=== PATIENT | female | born 1970 | race Caucasian/White ===

== ENCOUNTER 2024-10-28 00:04 | Emergency (ER) | payer MEDICARE, SELFPAY ==
--- NOTE | 2024-10-28 | ECG_ITS ---
Test Reason : CP Blood Pressure : */* mmHG Vent. Rate : 83 BPM Atrial Rate : 83 BPM P-R Int : 168 ms QRS Dur : 82 ms QT Int : 376 ms P-R-T Axes : 62 42 68 degrees QTcB Int : 441 ms Normal sinus rhythm Normal ECG No previous ECGs available Referred By: Generic ED Physician Electronically Signed By: JAMES CHO
--- NOTE | ~2024-10-28 | XR_ITS ---
CLINICAL HISTORY: chest pain 2 view chest x-ray Comparison: None Findings: The lungs are clear. Normal size heart. No acute fracture. IMPRESSION: 1. No acute findings. This document has been electronically signed by: Oneil Ventura MD on 10/28/2024 01:24:42
[2024-10-28 00:58] VITALS: BP 123/70; BP 126/74; PULSE 107; PULSE 80; RESP 24; TEMP 36.6; O2SAT 99; BMI 25.9
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
--- OUTSIDE RECORDS SUMMARY | 2024-10-28 01:16 | XMS_ITS | Clinical Summary ---
Author Organization [facility] Address [address] [place] [address] Care Team Providers Care Design Draftsman Name Role Phone Unavailable Primary Care Provider Unavailabl e Social History Tobacco Use Types Packs/Day Years Used Date Smoking Tobacco: Never Assessed Comments Unknown Sex and Gender Information Value Date Recorded Sex Assigned at Not on file Legal Sex Female 2:30 AM EST Gender Identity Not on file Sexual Orientation Not on file Plan of Treatment Health Maintenance Due Date Last Done Comments Breast Cancer Screening 1968 DTaP,Tdap,and Td Vaccines (1 - Tdap) 1987 Hepatitis B Vaccines (1 of 3 - 19+ 3-dose series) 1987 Cervical Cancer Screening: P ap Smear 1989 Pneumococcal Vaccine: 50+ Ye ars (1 of 1 - PCV) 2018 Zoster Vaccines (1 of 2) 2018 COVID-19 Vaccine ( - 2023-2 5 season) 2024 Influenza Vaccine (Season Ended) 2025 HIB Vaccines Aged Out No longer eligi ble based on patient's age to complete this topic HPV Vaccines Aged Out No longer eligi ble based on patient's age to complete this topic Hepatitis A Vaccines Aged Out No long er eligible based on patient's age to complete this topic IPV Vaccines Aged Out No longer eligi ble based on patient's age to complete this topic MMR Vaccines Aged Out No longer eligi ble based on patient's age to complete this topic Meningococcal ACWY Vaccine Aged Out N o longer eligible based on patient's age to complete this topic Meningococcal B Vaccine Aged Out No l onger eligible based on patient's age to complete this topic Pneumococcal Vaccine: Pediat rics (0 to 5 Years) and At-Risk Patients (6 to 64 Years) Aged Out No longer eligible b ased on patient's age to complete this topic RSV Immunization Patients Un rachele 20 months Aged Out No longer eligible b ased on patient's age to complete this topic Varicella Vaccines Aged Out No longer eligible based on patient's age to complete this topic
--- OUTSIDE RECORDS SUMMARY | 2024-10-28 01:16 | XMS_ITS | Encounter Summary ---
Author Organization [employer] Address [address] [place] [address] [address] [place] [address] Care Team Providers Care Dehydrator Name Role Phone Meg Cross MD Primary Care Provider [phone] Encounter Details Date Type Department Care Team (Late st Contact Info) Description 11/28/2023 Orders Only [facility] [address] [place] [address] Meg Cross MD [address] [place] [address] Social History Tobacco Use Types Packs/Day Years [...] on file documented as of this encounter Plan of Treatment Upcoming Encounters Date Type Department Care Team (Late st Contact Info) Description 10/30/2024 11:00 AM EDT Office Visit [facility] [address] [place] [address] Meg Cross MD [address] [place] [address] 11/01/2024 10:30 AM EDT Office Visit [address] [address] Meg Cross MD [address] [place] [address] documented as of this encounter Procedures Procedure Name Priority Date/Time Associated Diagnosis Comments MRI EXT UPPER W/O CONTRAST RIGHT Routine 12/15/2023 7:18 PM EDT XR KNEE 1-2 VIEWS RIGHT Routine 12/08/2023 1:25 PM EDT XR SHOULDER 2+ VIEWS RIGHT Routine 11/27/2023 12:40 PM EDT XR HUMERUS RIGHT Routine 11/27/2023 12:3 9 PM EDT XR FOREARM 2 VIEWS RIGHT Routine 11/27/2023 12:38 PM EDT XR ELBOW 3 OR MORE VIEWS RIGHT Routine 11/27/2023 12:[address] ABDOMEN PELVIS W CONTRAST Routine 11/27/2023 12:[address] CHEST W CONTRAST Routine 11/27/2023 1 2:36 PM EDT XR CHEST PORTABLE Routine 11/27/2023 12: [address] CERVICAL SPINE WO CONTRAST Routine 11/27/2023 12:[address] HEAD WO CONTRAST Routine 11/27/2023 1 2:34 PM EDT documented in this encounter Results * MRI EXT UPPER W/O CONTRAST RIGHT (12/15/2023 7:18 PM EDT) Anatomical Region Laterality Modality Magnetic Resonan ce 12/15/2023 7:18 PM EDT Narrative 12/16/2023 11:25 AM EDT Clinical history: Right shoulder pain. Technique: MRI of the right shoulder was performed without intravenous contrast. Comparison: Radiographs 11/27/2023 Findings: Rotator cuff: Mild supraspinatus tendinopathy without tear. Infraspinatus and teres minor appear intact. Mild to moderate subscapularis tendinopathy. Edema noted in the rotator cuff interval. Glenoid labrum and biceps tendon: There is no displaced labral tear. The biceps tendon is in the groove. AC joint: The acromioclavicular joint is unremarkable. Articular cartilage: The articular cartilage is of normal thickness. No focal defects are seen. Bone: The bone and bone marrow are normal. Impression: 1. ??Features of adhesive capsulitis in the appropriate clinical setting. 2. ??Mild supraspinatus tendinopathy without tear. 3. ??Mild to moderate subscapularis tendinopathy without tear. WSN: [id number] Ordering Physician: Bonita Atkinson Dictated By: ?Connor Acevedo MD Dictated Date/Time: ?12/16/23 11:22 a Reviewed By: ?Connor Acevedo MD Signed By: ? Connor Acevedo MD Signed Date/Time: ? 12/16/23 11:22 am Transcribed By: ? SHANNON Transcribed Date/Time: ?12/16/23 11:12 am Procedure Note Sherrie, Image - 12/16/2023 Clinical history: Right shoulder pain. Technique: MRI of the right shoulder was performed without intravenouscontrast. Comparison: Radiographs 11/27/2023 Findings: Rotator cuff: Mild supraspinatus tendinopathy without tear. Infraspinatusand teres minor appear intact. Mild to moderate subscapularis tendinopathy.Edema noted in the rotator cuff interval. Glenoid labrum and biceps tendon: There is no displaced labral tear. Thebiceps tendon is in the groove. AC joint: The acromioclavicular joint is unremarkable. Articular cartilage: The articular cartilage is of normal thickness. Nofocal defects are seen. Bone: The bone and bone marrow are normal. Impression: 1. Features of adhesive capsulitis in the appropriate clinical setting. 2. Mild supraspinatus tendinopathy without tear. 3. Mild to moderate subscapularis tendinopathy without tear. WSN: [id number] Ordering Physician: Bonita Atkinson Dictated By: Connor Acevedo MD Dictated Date/Time: 12/16/23 11:22 a Reviewed By: Connor Acevedo MD Signed By: Connor Acevedo MD Signed Date/Time: 12/16/23 11:22 am Transcribed By: SHANNON Transcribed Date/Time: 12/16/23 11:12 am us Bonita Atkinson MD IMG MRI PROCEDURES Final Resul t * XR Knee 1-2 Views Right (12/08/2023 1:25 PM EDT) Anatomical Region Laterality Modality Lower Extremities, Knee Right Radiogra phic Imaging 12/08/2023 1:25 PM EDT Narrative 12/08/2023 1:42 PM EDT Knee 1 or 2 Views Right, 2 views Reason: acute pain of right knee; Special Instructions: see req please thank you COMPARISON: Multiple priors with the most recent dated 09/02/2023. FINDINGS: No bone lesions or fractures. No arthritic changes. No osteochondral defects or intra-articular loose bodies. No evidence of joint effusion. IMPRESSION: No definite acute osseous abnormality is seen involving the right knee. No interval change. However if the patient's right knee pain persists, consideration should be given to an MRI examination of the right knee. WSN: [id number] Ordering Physician: Meg Cross Dictated By: ?Domenico Palacio MD V Dictated Date/Time: ?12/08/23 1:39 pm Reviewed By: ?Domenico Palacio MD, V Signed By: ? Domenico Palacio MD V Signed Date/Time: ? 12/08/23 1:39 pm Transcribed By: ? CSB Transcribed Date/Time: ?12/08/23 1:38 pm Procedure Note Donotuseinterpreter, Image - 12/08/2023 Knee 1 or 2 Views Right, 2 views Reason: acute pain of right knee; Special Instructions: see req pleasethank you COMPARISON: Multiple priors with the most recent dated 09/02/2023. FINDINGS: No bone lesions or fractures. No arthritic changes. No osteochondral defects or intra-articular loosebodies. No evidence of joint effusion. IMPRESSION: No definite acute osseous abnormality is seen involving the right knee.No interval change. However if the patient's right knee pain persists, consideration should begiven to an MRI examination of the right knee. WSN: [id number] Ordering Physician: Meg Cross Dictated By: Fereshetian MD, Domenico V Dictated Date/Time: 12/08/23 1:39 pm Reviewed By: Domenico Palacio MD, V Signed By: Domenico Palacio MD, V Signed Date/Time: 12/08/23 1:39 pm Transcribed By: SHANNON Transcribed Date/Time: 12/08/23 1:38 pm Meg Cross MD IMG XR PROCEDURES Final Result * XR Shoulder 2+ Views Right (11/27/2023 12:40 PM EDT) Anatomical Region Laterality Modality Upper Extremities, Shoulder Right Radi ographic Imaging us Meg Cross MD IMG XR PROCEDURES Final Result * XR Humerus Right (11/27/2023 12:39 PM EDT) Anatomical Region Laterality Modality Upper Extremities, Humerus Right Radio graphic Imaging Meg Cross MD IMG XR PROCEDURES Final Result * XR Forearm 2 Views Right (11/27/2023 12:38 PM EDT) Anatomical Region Laterality Modality Upper Extremities, Forearm Right Radio graphic Imaging Result [facility] Meg Cross MD IMG XR PROCEDURES Final Result * XR ELBOW 3 OR MORE VIEWS RIGHT (11/27/2023 12:37 PM EDT) Anatomical Region Laterality Modality Radiographic Trina ging Result [facility] Meg Cross MD IMG XR PROCEDURES Final Result * CT Abdomen Pelvis w/ Contrast (11/27/2023 12:37 PM EDT) Anatomical Region Laterality Modality Body, Pelvis, Abdomen Computed T omography us Meg Cross MD G CT PROCEDURES Final Result * CT Chest w/ Contrast (11/27/2023 12:36 PM EDT) Anatomical Region Laterality Modality Body, Chest Computed Tomogra phy us Meg Cross MD IMG CT PROCEDURES Final Result * XR Chest Portable (11/27/2023 12:35 PM EDT) Anatomical Region Laterality Modality Radiographic Trina ging Meg Cross MD IMG XR PROCEDURES Final Result * CT Cervical Spine w/o Contrast (11/27/2023 12:35 PM EDT) Anatomical Region Laterality Modality Spine, C-spine Computed Tomogra phy Meg Cross MD IMG CT PROCEDURES Final Result * CT HEAD WO CONTRAST (11/27/2023 12:34 PM EDT) Anatomical Region Laterality Modality Computed Tomogra phy Meg Cross MD IMG CT PROCEDURES Final Result documented in this encounter Visit Diagnoses Not on filedocumented in this encounter Additional Health Concerns Assessment Noted Time PHQ-9 Depression Total Score: 4 08/26/19 24 10:35 AM EST documented as of this encounter Care Teams Dehydrator Relationship Specialty Start Date End Date Meg Cross MD [address] [place] [id number] PCP - General Internal Medicine 05/20/22 documented as of this encounter
--- OUTSIDE RECORDS SUMMARY | 2024-10-28 01:16 | XMS_ITS | Encounter Summary ---
Author Organization [employer] Address [address] [place] [address] 7 [place] [address] Care Team Providers Care Sock Lining Stitcher Name Role Phone Meg Cross MD Primary Care Provider [phone] Encounter Details Date Type Department Care Team (Late st Contact Info) Description 11/02/2023 Orders Only [facility] [address] [place] [address] Meg Cross MD [address] [place] [address] Social History Tobacco Use Types Packs/Day Years [...] Description 10/30/2024 11:00 AM EDT Office Visit [address] [address] Meg Cross MD [address] [place] [phone] 11/01/2024 10:30 AM EDT Office Visit [address] [address] Meg Cross MD [address] [place] [address] documented as of this encounter Procedures Procedure Name Priority Date/Time Associated Diagnosis Comments HM PAP/HPV Routine 10/15/2022 12:32 PM EDT HM PAP/HPV Routine 07/29/2021 12:31 PM EST documented in this encounter Results * HM PAP/HPV (10/15/2022 12:32 PM EDT) us Meg Cross MD HEALTH MAINTENANCE Final Result * HM PAP/HPV (07/29/2021 12:31 PM EST) us Meg Cross MD HEALTH MAINTENANCE Final Result documented in this encounter Visit Diagnoses Not on filedocumented in this encounter Additional Health Concerns Assessment Noted Time PHQ-9 Depression Total Score: 4 08/26/19 24 10:35 AM EST documented as of this encounter Care Teams Sock Lining Stitcher Relationship Specialty Start Date End Date Meg Cross MD [address] [place] [id number] PCP - General Internal Medicine 05/20/22 documented as of this encounter
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
--- OUTSIDE RECORDS SUMMARY | 2024-10-28 01:16 | XMS_ITS | Data Portability ---
Author Organization [place] - [facility], [facility] Address [address] [place] [address] Care Team Providers Care Clinical Cytogenetics Director Name Role Phone YANE MCLAUGHLIN Elderly Sitter [phone] Assessment Encounter Date Assessment Date Assessment LastModified by Organization Details LastModified Time 09/20/2023 09/20/2023 Chief Complaint: Right knee contusion injury, work-related injury HPI: The patient is a 53-year-old female who presents with a chief complaint of knee pain that began this month. The onset of pain is associated with a work injury at [employer], where she reports hitting her knee with a metal bar, leading to an impact injury. Following the incident, the patient experienced swelling and sharp pain, particularly when attempting to bend her knee. Initially, the pain radiated up her leg but has since become localized to the anterior knee area. She describes difficulty sleeping on her side due to discomfort caused when her knees touch. The patient has been unable to work for a month as a result of the injury and expresses a strong desire to recover and return to her job. I independently reviewed outside x-rays of the right knee including AP, lateral and merchant views. No acute fractures or dislocations. Normal medial, lateral patellofemoral joint space. Normal patellar height. She has no significant past medical history and takes no medications. She has an allergy to penicillin. She is . She denies tobacco use. No personal or family history blood clots. Past medical, surgical, family and social history; Medications, Allergies and 12-point review of systems have been reviewed, updated and charted. Physical Examination: Height and weight as listed in chart. Constitutional: Patient pleasant, well appearing and in NAD. Mental status: Patient is alert and oriented to person, place and time. No short-term memory deficits. Psychiatric: Mood and affect are appropriate. Head: Normocephalic and atraumatic. Exterior inspection of the ears and nose was unremarkable. Hearing grossly intact. Eyes: Sclera are not blue. air analysis engineering technician II-XII are grossly intact. Full extraocular motion. Neck: Supple with age-appropriate ROM. No tracheal deviation. No obvious JVD. Respiratory: Non-labored breathing. Symmetric excursion. No audible wheezing or crackles. Peripheral Vascular: No peripheral edema. Distal pulses intact. Neurological: Peripheral motor and sensory exam normal and equal bilaterally. Skin: No rashes, lesions, wounds to the lower extremities. Normal turgor and coloration. Musculoskeletal: On examination of the right knee, there is no effusion, erythema or ecchymosis. Overall range of motion from 0-110? ? ? limited by pain. She has discomfort with deep knee flexion. Generalized tenderness over the anterior knee including the quad tendon and patellar tendon. She also exhibits medial and lateral joint line tenderness and tenderness over the medial tibial plateau. Her knee is stable to varus and valgus stress as well as Bethanie and posterior drawer. No patellar instability or grind. Extensor mechanism intact. 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 Her history and examination are consistent with a right knee contusion injury. She does have generalized tenderness over her anterior medial knee and certainly medial meniscus tear is also on the differential diagnosis. She has difficulty ambulating today in the office. I discussed options with her and recommended getting an MRI of the right knee to evaluate for contusion related bony edema as well as possible medial meniscus tear and associated pathology. I referred her for a Genutrain knee sleeve to provide compressive support to her knee and assist with activities of daily living. I performed a cortisone injection for both diagnostic and therapeutic purposes to the right knee today that she tolerated very well. I recommended stationary biking and water aerobics as gentle low-impact activities to help with her symptoms and range of motion. I prescribed diclofenac 1% anti-inflammatory cream. Remaining details of our plan is also below. I will plan to see her back in 3 weeks for reevaluation. I will keep her out of work at this time it did provide a work note. All questions and concerns were addressed. Knee Contusion Management Plan: - Scheduling an MRI to assess for potential bony edema and medial meniscus injury. - Initiating a regimen of physical therapy. - Prescribing a knee sleeve to provide additional support. - Recommending the use of a cane to enhance stability. - Advising the patient to massage the front of the knee with lotion to desensitize nerve endings. - Prescribing a topical anti-inflammatory medication. - Continuing the current prescription of meloxicam. - Administering a cortisone injection to alleviate inflammation. - Encouraging the application of ice post-activity. - Suggesting engaging in water aerobics and stationary biking for exercise. - Scheduling a follow-up appointment in three weeks. Today's visit involved examining the patient, reviewing the history, reviewing the radiographic studies, counseling the patient regarding treatment options, and the administrative tasks including placing orders, preparing patient information and home handouts and preparing the visit note. This note was generated with [facility] speech recognition fitting room operator dictation software. Please excuse any errors that may have been overlooked during review of this note. Sometimes, these errors may affect the content or meaning of a given sentence. Please call for corrections. [email or web address] Not available 09/20/2023 17:01:01 10/13/2023 10/13/2023 Chief Complaint: Right knee contusion injury, work-related injury HPI: The patient is a 53-year-old female who presents with a chief complaint of knee pain that began this month. The onset of pain is associated with a work injury at [employer], where she reports hitting her knee with a metal bar, leading to an impact injury. Following the incident, the patient experienced swelling and sharp pain, particularly when attempting to bend her knee. Initially, the pain radiated up her leg but has since become localized to the anterior knee area. She describes difficulty sleeping on her side due to discomfort caused when her knees touch. The patient has been unable to work for a month as a result of the injury and expresses a strong desire to recover and return to her job. I independently reviewed outside x-rays of the right knee including AP, lateral and merchant views. No acute fractures or dislocations. Normal medial, lateral patellofemoral joint space. Normal patellar height. She has no significant past medical history and takes no medications. She has an allergy to penicillin. She is . She denies tobacco use. No personal or family history blood clots. Past medical, surgical, family and social history; Medications, Allergies and 12-point review of systems have been reviewed, updated and charted. Physical Examination: Height and weight as listed in chart. Constitutional: Patient pleasant, well appearing and in NAD. Mental status: Patient is alert and oriented to person, place and time. No short-term memory deficits. Psychiatric: Mood and affect are appropriate. Head: Normocephalic and atraumatic. Exterior inspection of the ears and nose was unremarkable. Hearing grossly intact. Eyes: Sclera are not blue. air analysis engineering technician II-XII are grossly intact. Full extraocular motion. Neck: Supple with age-appropriate ROM. No tracheal deviation. No obvious JVD. Respiratory: Non-labored breathing. Symmetric excursion. No audible wheezing or crackles. Skin: No rashes, lesions, wounds to the lower extremities. Normal turgor and coloration. Musculoskeletal: On examination of the right knee, there is no effusion, erythema or ecchymosis. Overall range of motion from 0-130? ? ? limited by pain. She has discomfort with deep knee flexion. Generalized tenderness over the anterior knee including the quad tendon and patellar tendon, however, improved from prior exam. She also exhibits medial and lateral joint line tenderness and tenderness over the medial tibial plateau. Her knee is stable to varus and valgus stress as well as Bethanie and posterior drawer. No patellar instability or grind. Extensor mechanism intact. 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 Her history and examination are consistent with a right knee contusion injury. She does have generalized tenderness over her anterior medial knee and certainly medial meniscus tear is also on the differential diagnosis. She has difficulty ambulating today in the office. I discussed options with her and recommended getting an MRI of the right knee to evaluate for contusion related bony edema as well as possible medial meniscus tear and associated pathology. I previously referred her for a Genutrain knee sleeve to provide compressive support to her knee and assist with activities of daily living. She did have symptomatic improvement with the cortisone injection and I recommend she continue to use anti-inflammatori es as needed. I recommended stationary biking and water aerobics as gentle low-impact activities to help with her symptoms and range of motion. I have also referred her to physical therapy to work on range of motion and quad activation. 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 A work note was provided. I will plan to see her back in 6-8 weeks for reevaluation. All questions and concerns were addressed. [email or web address] Not available 10/13/2023 12:39:18 11/24/2023 11/24/2023 Chief Complaint: Right knee contusion injury, work-related injury HPI: The patient is a 53-year-old female who presents with a chief complaint of knee pain that began this month. The onset of pain is associated with a work injury at [employer], where she reports hitting her knee with a metal bar, leading to an impact injury. Following the incident, the patient experienced swelling and sharp pain, particularly when attempting to bend her knee. Initially, the pain radiated up her leg but has since become localized to the anterior knee area. She describes difficulty sleeping on her side due to discomfort caused when her knees touch. The patient has been unable to work for a month as a result of the injury and expresses a strong desire to recover and return to her job. She has had significant improvement in overall symptoms over the last 6 weeks since I last saw her but continues to isolate pain to the area of her contusion injury. She has responded favorably to low-impact activity, anti-inflammatori es as needed as well as use of a knee sleeve. She comes back today for scheduled reevaluation after obtaining an MRI. I independently reviewed the MRI of the right knee dated 10/28/2023. There is increased signal along the anterior portion of the patellar tendon consistent with prepatellar bursitis and contusion injury. Moderate patellar chondromalacia with some full thickness chondral loss to the medial patellar facet and subchondral changes noted. ACL and PCL intact. Collateral ligaments intact. Medial and lateral menisci intact with some possible fraying along the mid body of the medial meniscus. Extensor mechanism intact. Medial and lateral retinaculum intact. I independently reviewed outside x-rays of the right knee including AP, lateral and merchant views. No acute fractures or dislocations. Normal medial, lateral patellofemoral joint space. Normal patellar height. She has no significant past medical history and takes no medications. She has an allergy to penicillin. She is . She denies tobacco use. No personal or family history blood clots. Past medical, surgical, family and social history; Medications, Allergies and 12-point review of systems have been reviewed, updated and charted. Physical Examination: Height and weight as listed in chart. Constitutional: Patient pleasant, well appearing and in NAD. Mental status: Patient is alert and oriented to person, place and time. No short-term memory deficits. Psychiatric: Mood and affect are appropriate. Head: Normocephalic and atraumatic. Exterior inspection of the ears and nose was unremarkable. Hearing grossly intact. Eyes: Sclera are not blue. air analysis engineering technician II-XII are grossly intact. Full extraocular motion. Neck: Supple with age-appropriate ROM. No tracheal deviation. No obvious JVD. Respiratory: Non-labored breathing. Symmetric excursion. No audible wheezing or crackles. Skin: No rashes, lesions, wounds to the lower extremities. Normal turgor and coloration. Musculoskeletal: On examination of the right knee, there is no effusion, erythema or ecchymosis. Overall range of motion from 0-135? ? ?. She exhibits tenderness over the proximal portion of her pes anserine bursa and anteromedial tibia. No significant joint line tenderness. Her knee is stable to varus and valgus stress as well as Bethanie and posterior drawer. No patellar instability or grind. No pain with patellofemoral loading. No significant tenderness along the quad tendon or patellar tendon. Extensor mechanism intact. Procedure: Injection of Steroid and Anesthetic, Pes Anserine Bursa All reasonable risks and benefits of injection were discussed. Risks include bleeding, infection, non-relief of symptoms, recurrence of symptoms, allergic reaction, scarring, fat atrophy, and hyperglycemia. After obtaining verbal consent, the right anteromedial knee/roe was prepped in sterile fashion using an alcohol swab. The skin was anesthetized with ethyl chloride spray, wiped again with alcohol, and an injection of 1cc of Kenalog 40 and 4cc? s of Lidocaine 1% was performed using a 22-gauge needle into the pes anserine bursa. The medication flowed freely, and the patient tolerated this procedure well. The patient was instructed to avoid strenuous activity following the injection for approximately 24 to 48 hours, and then a gradual return to normal activities is allowed. 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 Her history, MRI and examination are consistent with a right knee contusion injury. She does have generalized tenderness over her anterior medial knee at the location of the impact/contusion injury. Fortunately, her symptoms have significantly improved through conservative treatment including rest, activity modification, oral anti-inflammatori es, cortisone injection treatment and physical therapy. She is walking normally without an assistive device at this point. I did recommend attempting a pes anserine bursal injection today that she tolerated very well. I also want her to continue using a topical anti-inflammatory and her knee sleeve. I suggested stationary biking is an excellent low-impact activity. I do think that it will likely take a few months for the contusion symptoms to completely resolve. She does wish to return to work and I will allow her to do so at full duty status beginning 12/05/2023. A work note was provided. At this point, I can see her back as needed. All questions and concerns were addressed. [email or web address] Not available 11/24/2023 10:44:02 Plan of Treatment Reminders Order Date Submit Date Provider Last Modified By Organization Details Last Modified Time Details Appointments None recorded. Lab None recorded. Referral physical therapist referral - general strengtheni ng, ROM, quad strengtheni ng, modalities as tolerated 2023 024 [email or web address] Not available 13:15:05 Procedures None recorded. Surgeries None recorded. Imaging MRI, knee, w/o contrast - ? mmt/ pending w/c approval 2023 024 [email or web address] 4 [facility] [place], [address] [facility], [facility] [address], [place], [address], 4 15:36:46 Medication Orders diclofenac 1 % topical gel 2023 024 [email or web address] 4 [id number], [address] [place] [address], [place], [address], 15:36:46 Patient TargetsNo targets recorded. Patient Instructions Encounter Date Encounter Id Patient Instructions Last Modified By Organization Details Last Modified Time 09/20/2023 [id number] Dear Melissa Wiley, Thank you for visiting us today. Please find below the treatment plan and care instructions we discussed: - Physical Therapy: Begin sessions to support your recovery process. - Knee Support: Use an appropriate knee sleeve for added stability. - Mobility Aid: Consider using a cane to help with balance and stability. - MRI: Scheduled to evaluate potential underlying issues, such as bony edema or damage to the medial meniscus. - Knee Massage: Regularly massage the front of your knee with lotion to desensitize nerve endings. - Medication Continuation: Continue taking Meloxicam as previously prescribed. - Topical Anti-Inflammatory : I will prescribe this medication to assist with pain relief. - Cortisone Injection: We will administer this to alleviate inflammation and discomfort in your knee. - Ice Application: Apply ice post-activity to control swelling. - Gentle Exercises: Engage in low-impact activities like water aerobics and stationary biking. - Work Leave: You will be kept out of work for the next three weeks to focus on your recovery. - Follow-Up Appointment: We have scheduled your next visit for three weeks from now to monitor your progress and adjust the treatment plan as necessary. Our goal is to ensure you receive the highest quality of care and can return to your daily activities pain-free. Should you have any questions or need assistance before your follow-up, please reach out to our office. Best regards, Dr. Yrn Jacobsen MD Orthopedic Surgery [email or web address] Not available 09/20/2023 17:02:58 Reason for Referral Physical Therapist Referral for Contusion of right knee general strengthening, ROM, quad strengthening, modalities as tolerated Referring Physician: Yrn Jacobsen, Orthopedic Surgery, [id number] Encounter Date: 10/13/2023 Procedures Surgical History Date Name Laterality Status Provider Name and Address Organization Details Recorded Time 4 Small Joint Kenalog Injection, L/R completed Yrn Jacobsen MD [address] [facility] [address] [facility], [place], [address], [facility] 11/24/2023 10:44:47 4 Sports Knee 4&1 completed Yrn Jacobsen MD [address] [facility] [facility] [address], [place], [address], [facility] 09/20/2023 17:01:14 Imaging Results None recorded. Procedure Notes None recorded. Medical Equipment None Reported. Allergies Allergen ID Allergen Name Allergen Category Reaction Reaction Severity Criticality Documentation Date Start Date Code Code System Note Provider Name and Address Organization Details Recorded Time 241131 Product containin g penicilli n (product) medicatio n Not available Not available Not available 10/13/2023 47016 8001 SNOMED SANA AMBROSIO [facility] 12:06:33 Medications Name Sig Start Date Stop Date Status Note LastModified by Organization Details LastModified Time fluoxetine 40 mg capsule TAKE 1 CAPSULE BY MOUTH TWICE A DAY active Not Available Not Available No t Available buspirone 5 mg tablet PLEASE SEE ATTACHED FOR DETAILED DIRECTIONS active Not Available Not Available N ot Available bupropion HCl SR 150 mg tablet,12 hr sustained-re lease TAKE 1 TABLET BY MOUTH TWICE A DAY active Not Available Not Available No t Available tizanidine 4 mg tablet TAKE 1 TABLET BY MOUTH EVERY 8 HOURS NEEDED FOR MUSCLE SPASMS active Not Available Not Available No t Available meloxicam 15 mg tablet TAKE 1 TABLET BY MOUTH EVERY DAY IN THE MORNING active Not Available Not Available No t Available terbinafine HCl 250 mg tablet TAKE 1 TABLET (250 MG) BY MOUTH ONCE PER DAY. active Not Available Not Available No t Available baclofen 10 mg tablet TAKE 1 TABLET BY MOUTH TWICE A DAY active Not Available Not Available No t Available benzonatate 100 mg capsule TAKE 1 CAPSULE BY MOUTH IF NEEDED IN THE MORNING , AT NOON AND BEDTIME FOR COUGH DO NOT CRUSH/CHEW active Not Available Not Available N ot Available hydroxyzine HCl 25 mg tablet TAKE 1 TABLET BY MOUTH EVERY 8 HOURS NEEDED FOR ITCHING active Not Available Not Available No t Available diclofenac 1 % topical gel APPLY 2 GRAMS TO THE AFFECTED AREA(S) BY TOPICAL ROUTE 4 TIMES PER DAY active Not Available Not Available No t Available Vitals Date Recorded Body height Body mass index (BMI) Body weight Provider Name and Address Organization Details Last Updated DateTime 10/13/2023 152.4 cm 28.1 kg/m2 55556.3 g SANA AMBROSIO [facility] 10/13/2023 12:06:18 Date Recorded Body height Body mass index (BMI) Body weight Provider Name and Address Organization Details Last Updated DateTime 11/24/2023 152.4 cm 28.1 kg/m2 52688.3 g Chris Raza [place] - [facility] 11/24/2023 09:45:19 Social History None recorded. Functional Status None recorded. Mental Status None recorded. Family History Nothing Reported. Medical History No medical history recorded. Gynecological HistoryNo gynecological history recorded. Obstetrics History GPAL:G 0 P 0 0 0 0 Past Encounters Encounter ID Performer Location Encounter Start Date Encounter Closed Date Diagnosis/Indication Diagnosis SNOMED-CT Code Diagnosis ICD10 Code Diagnosis Note [id number] MD Katelin Newberry [address] [place] [address] 09/20/2023 13:58:04 10/13/2023 15:08:49 Pain of right knee joint 9223211419 98923 M25.561 Contusion of right knee 2239652394 0914004 S80.01XA [id number] MD Katelin Newberry [address]nd [facility] [address] [place] [address] 10/13/2023 11:00:27 11/03/2023 09:05:01 Contusion of right knee 8175913775 9801018 S80.01XA [id number] [facility] [address] [place] [address] 11/24/2023 09:35:51 12/16/2023 14:26:23 Contusion of right knee [id number] [id number] S80.01XD Health Concerns Section Related Observation LastModified by Organization Detai ls LastModified Time None Recorded Concern Status LastModified by Organization Details LastModified Time None Recorded Advance Directives Directive None Recorded Payers Encounter Date Sequence Insurance Name Policy Number Policy Carrasquillo Covered Member ID Carrasquillo Member ID Guarantor Name 09/20/2023 [employer] Melissa Inez 10/13/2023 [employer] Melissa Inez 11/24/2023 [employer] Melissa Inez OBGyn Episode No OBEpisode recorded.
--- OUTSIDE RECORDS SUMMARY | 2024-10-28 01:16 | XMS_ITS | Encounter Summary ---
Author Organization [employer] Address [address] [facility] 7t [place] [address] Care Team Providers Care Director Of Event Marketing Name Role Phone Meg Cross MD Primary Care Provider [phone] Encounter Details Date Type Department Care Team (Late st Contact Info) Description 10/31/2023 Orders Only [facility] MEDICAL [address] [place] [address] ProviderBharat MD Social History Tobacco Use Types Packs/Day Years [...] Description 10/30/2024 11:00 AM EDT Office Visit [address] [address] Meg Cross MD [address] [place] [address] 11/01/2024 10:30 AM EDT Office Visit [address] [address] Meg Cross MD [address] [place] [address] documented as of this encounter Procedures Procedure Name Priority Date/Time Associated Diagnosis Comments SURGICAL PATHOLOGY Routine 03/10/2023 6:53 PM EDT documented in this encounter Results * Surgical Pathology (03/10/2023 6:53 PM EDT) us Historical Provider LAB PATHOLOGY ORDERABLES Final Result documented in this encounter Visit Diagnoses Not on filedocumented in this encounter Additional Health Concerns Assessment Noted Time PHQ-9 Depression Total Score: 4 08/26/19 24 10:35 AM EST documented as of this encounter Care Teams Director Of Event Marketing Relationship Specialty Start Date End Date Meg Cross MD [address] [place] [address] PCP - General Internal Medicine 05/20/22 documented as of this encounter
--- OUTSIDE RECORDS SUMMARY | 2024-10-28 01:16 | XMS_ITS | Encounter Summary ---
Author Organization [employer] Address [address] [place] [address] 7 [place] [address] Care Team Providers Care Smoke Jumper Name Role Phone Meg Cross MD Primary Care Provider [phone] Reason for Visit * Reason Onset Date Comments fml paperwork 09/20/2024 Encounter Details Date Type Department Care Team (Late st Contact Info) Description 09/20/[address] [facility] MEDICAL [address] [place] [address] Meg Cross MD [address] [place] [address] fml paperwork Social History Tobacco Use Types Packs/Day Years [...] encounter Miscellaneous Notes * Telephone Encounter - SAHRA Miranda - 09/21/2024 4:53 PM EDT Paperwork in outgoing bin in Dr Anders office. * Telephone Encounter - Molly Puente - 09/20/2024 12:19 PM EDT Patient dropped off family medical leave paperwork at desk and asked that she be given a call when it is completed so that she can come pick it up. Paperwork placed in provider folder. documented in this encounter Plan of Treatment Upcoming Encounters Date Type Department Care Team (Late st Contact Info) Description 10/30/2024 11:00 AM EDT Office Visit [facility] MEDICAL [address] [place] [address] Meg Cross MD [address] [place] [address] 11/01/2024 10:30 AM EDT Office Visit [address] [address] Meg Cross MD [address] [place] [address] documented as of this encounter Visit Diagnoses Not on filedocumented in this encounter Additional Health Concerns Assessment Noted Time PHQ-9 Depression Total Score: 4 08/26/19 24 10:35 AM EST documented as of this encounter Care Teams Smoke Jumper Relationship Specialty Start Date End Date Meg Cross MD [address] [place] [address] PCP - General Internal Medicine 05/20/22 documented as of this encounter
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
[2024-10-28 03:13] VITALS: BP 101/59; PULSE 70; RESP 18; TEMP 36.6; O2SAT 97
[2024-10-28 03:18] LABS: MANUAL DIFF FLAG NO
[2024-10-28 03:20] LABS: Basophils Percent Auto 0.2 % (0-2); Eosinophils Percent Auto 0.1 % (0-4); Hematocrit 38.4 % (37.0-47.0); Imm Gran Abs Auto 0.03 X10*3/uL (0.00-0.03); Imm Gran Pct Auto 0.3 % (0.0-0.4); Lymphocytes Absolute Auto 1.1 X10*3/uL (1.2-4.9); Mean Corpuscular HGB Conc 33.9 g/dl (31.0-35.0); Mean Corpuscular Hemoglobin 27.4 pg (27.0-33.0); Mean Corpuscular Volume 80.8 fL (80.0-98.0); Monocytes Absolute Auto 0.6 X10*3/uL (0.1-1.2); Monocytes Percent Auto 5.9 % (2-11); Neutrophils Absolute Auto 9.1 x10*3/uL (2.0-8.3); Neutrophils Percent Auto 83.5 % (45-73); Platelet Count 230 X10*3/uL (160-400); Red Blood Count 4.75 X10*6/uL (4.20-5.50); Red Cell Distribution Width 13.1 % (11.0-16.0); White Blood Count 10.9 X10*3/uL (4.8-10.8)
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
[2024-10-28 03:38] LABS: Albumin Level 4.2 g/dL (3.5-5.0); Alkaline Phosphatase 89 U/L (39-117); Anion Gap 13 (12-20); Aspartate Amino Transferase 25 U/L (5-31); Bilirubin Total 0.5 mg/dL (0.0-1.0); Blood Urea Nitrogen 12 mg/dL (9-16); Calcium 9.3 mg/dL (8.4-10.2); Carbon Dioxide 25 mmol/L (22-29); Chloride 107 mmol/L (96-108); Creatinine Clr Calc Pharmacy 69.8; Estimated Glomerular Filt Rate > 60; Glucose Random 128 mg/dL (60-115); Potassium 3.3 mmol/L (3.3-5.1); Sodium 142 mmol/L (135-145); Total Protein 6.4 g/dL (6.5-8.0)
[2024-10-28 03:41] LABS: Troponin-I High Sensitivity 3.2 ng/L (<3.5-17.0)
[2024-10-28 03:50] LABS: Alanine Aminotransferase 22 U/L (0-31)
[2024-10-28 05:24] VITALS: BP 114/79; PULSE 75; RESP 16; TEMP 36.6; O2SAT 99
[2024-10-28 05:56] LABS: Troponin-I High Sensitivity 2.9 ng/L (<3.5-17.0)
[2024-10-28 07:07] VITALS: BP 125/77; PULSE 70; RESP 14; TEMP 36.8; O2SAT 96
--- NOTE | 2024-10-28 07:08 | PC.NURSE ---
Attempted to medicate patient before discharge, patient refused ativan. Patient stated I dont want to be groggy for oriental orthodox . Patient calm and cooperative
== END 2024-10-28 07:46 | disposition home or self-care (01) ==
PROVIDERS: Emergency Provider Internal Medicine; PCP Internal Medicine
DX: R07.89 Other chest pain (principal); F41.1 Generalized anxiety disorder; F43.0 Acute stress reaction; Z79.899 Other long term (current) drug therapy
CPT/HCPCS: 36415; 71046; 80053; 84484; 85025; 93005; 99283; 99285

== ENCOUNTER → 2024-10-28 00:13 | Outpatient (BNV) | payer MEDICARE, SELFPAY | PROVIDERS: Emergency Provider Internal Medicine; PCP Internal Medicine; Visit Provider Internal Medicine | DX: R07.9 Chest pain, unspecified (principal) | CPT/HCPCS: 93010 ==

== ENCOUNTER → 2024-10-28 01:10 | Outpatient (BNV) | payer MEDICARE, SELFPAY | PROVIDERS: Emergency Provider Internal Medicine; PCP Internal Medicine; Visit Provider Radiology Diagnostic Radiology | DX: R07.9 Chest pain, unspecified (principal) | CPT/HCPCS: 71046 ==

== ENCOUNTER 2024-10-31 19:31 | Emergency (ER) | payer BC, MEDICARE, SELFPAY ==
--- NOTE | ~2024-10-31 | XR_ITS ---
CLINICAL HISTORY: chest pain 2 view chest x-ray Comparison: CR - XR CHEST 2V - 10/28/24 01:16 EDT Findings: The lungs are clear. Normal size heart. No acute fracture. IMPRESSION: 1. No acute findings. This document has been electronically signed by: Sierra Childress MD on 10/31/2024 20:34:57
--- NOTE | 2024-10-31 19:32 | ECG_ITS ---
Test Reason : CHEST PAIN Blood Pressure : */* mmHG Vent. Rate : 65 BPM Atrial Rate : 65 BPM P-R Int : 174 ms QRS Dur : 74 ms QT Int : 402 ms P-R-T Axes : 65 41 46 degrees QTcB Int : 418 ms Normal sinus rhythm Normal ECG When compared with ECG of 28-Oct-2024 00:13, No significant change was found Referred By: Cathy Perez Electronically Signed By: PIPPA COLON MD
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
[2024-10-31 19:48] VITALS: BP 142/82; PULSE 69; RESP 20; TEMP 36.8; O2SAT 96; BMI 24.3
[2024-10-31 20:06] LABS: MANUAL DIFF FLAG NO
[2024-10-31 20:07] LABS: Basophils Percent Auto 0.3 % (0-2); Eosinophils Percent Auto 0.5 % (0-4); Hemoglobin 13.5 g/dl (12.0-16.0); Imm Gran Abs Auto 0.01 X10*3/uL (0.00-0.03); Imm Gran Pct Auto 0.2 % (0.0-0.4); Lymphocytes Absolute Auto 1.8 X10*3/uL (1.2-4.9); Lymphocytes Percent Auto 28.5 % (20-40); Mean Corpuscular HGB Conc 33.8 g/dl (31.0-35.0); Mean Corpuscular Hemoglobin 27.7 pg (27.0-33.0); Mean Corpuscular Volume 82.1 fL (80.0-98.0); Mean Platelet Volume 10.1 fL (9.4-12.3); Monocytes Absolute Auto 0.5 X10*3/uL (0.1-1.2); Monocytes Percent Auto 7.4 % (2-11); Neutrophils Percent Auto 63.1 % (45-73); Platelet Count 246 X10*3/uL (160-400); Red Blood Count 4.87 X10*6/uL (4.20-5.50); Red Cell Distribution Width 13.2 % (11.0-16.0); White Blood Count 6.3 X10*3/uL (4.8-10.8)
[2024-10-31 20:08] VITALS: BP 113/68; PULSE 63; RESP 17; TEMP 36.8; O2SAT 97
--- OUTSIDE RECORDS SUMMARY | 2024-10-31 20:19 | XMS_ITS | Encounter Summary ---
Author Organization [employer] Address [address] [place] [address] 7t [place] [address] Care Team Providers Care Business Services Tech Name Role Phone Meg Cross MD Primary Care Provider [phone] Encounter Details Date Type Department Care Team (Late st Contact Info) Description 10/31/[address] [facility] MEDICAL [address] [place] [address] ProviderBharat MD Social History Tobacco Use Types [...] Care Team (Late st Contact Info) Description 11/01/2024 10:30 AM EDT Office Visit [facility] MEDICAL [address] [place] [address] Meg Cross MD [address] [place] [address] documented as of this encounter Procedures Procedure [...] documented as of this encounter Care Teams Business Services Tech Relationship Specialty Start Date End Date Meg Cross MD [address] [place] [address] PCP - General Internal Medicine 05/20/22 documented as of this encounter
--- OUTSIDE RECORDS SUMMARY | 2024-10-31 20:19 | XMS_ITS | Encounter Summary ---
Author Organization [employer] Address [address] [place] [address] 7 [place] [address] Care Team Providers Care Yarn Carrier Name Role Phone Meg Cross MD Primary Care Provider Encounter Details Date Type Department Care Team (Late st Contact Info) Description 11/02/2023 Orders Only [facility] [address] [place] [address] Meg Cross MD [address] [place] [address] Social History Tobacco Use Types Packs/Day Years [...] Description 11/01/2024 10:30 AM EDT Office Visit [facility] MEDICAL [address] [place] [address] Meg Cross MD [address] [place] [address] documented as of this encounter Procedures Procedure [...] documented as of this encounter Care Teams Yarn Carrier Relationship Specialty Start Date End Date Meg Cross MD [address] [place] [address] PCP - General Internal Medicine 05/20/22 documented as of this encounter
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
--- OUTSIDE RECORDS SUMMARY | 2024-10-31 20:19 | XMS_ITS | Encounter Summary ---
Author Organization [employer] Address [address] [place] [address] 7 [place] [address] Care Team Providers Care Digital Tech Name Role Phone Meg Cross MD Primary Care Provider [phone] Encounter Details Date Type Department Care Team (Late st Contact Info) Description 10/29/2024 Orders Only [facility] [address] [place] [address] Meg Cross MD [address] [place] [address] Social History Tobacco Use Types Packs/Day Years [...] Description 11/01/2024 10:30 AM EDT Office Visit [facility] MEDICAL [address] [place] [address] Meg Cross MD [address] [place] [address] documented as of this encounter Procedures Procedure Name Priority Date/Time Associated Diagnosis Comments XR CHEST 2 VIEWS Routine 10/28/2024 10:51 AM EDT documented in this encounter Results * XR Chest 2 Views (10/28/2024 10:51 AM EDT) Anatomical Region Laterality Modality Chest Radiographic Trina ging Meg Cross MD IMG XR PROCEDURES Final Result documented in this encounter Visit Diagnoses Not on filedocumented in this encounter Additional Health Concerns Assessment Noted Time PHQ-9 Depression Total Score: 4 08/26/19 24 10:35 AM EST documented as of this encounter Care Teams Digital Tech Relationship Specialty Start Date End Date Meg Cross MD [address] [place] [address] PCP - General Internal Medicine 05/20/22 documented as of this encounter
--- OUTSIDE RECORDS SUMMARY | 2024-10-31 20:19 | XMS_ITS | Encounter Summary ---
Author Organization [employer] Address [address] [place] [address] 7 [place] [address] Care Team Providers Care Waiter/Waitress Take Out Name Role Phone Meg Cross MD Primary Care Provider [phone] Reason for Visit * Reason Onset Date Comments fml paperwork 09/20/2024 Encounter Details Date Type Department Care Team (Late st Contact Info) Description 09/20/[address] [facility] MEDICAL [address] [place] [address] Meg Cross MD [address] [place] [address] fml paperwork Social History Tobacco Use Types [...] Description 11/01/2024 10:30 AM EDT Office Visit [facility] MEDICAL [address] [place] [address] Meg Cross MD [address] [place] [address] documented as of this encounter Visit Diagnoses Not on filedocumented in this encounter Additional Health Concerns Assessment Noted Time PHQ-9 Depression Total Score: 4 08/26/19 24 10:35 AM EST documented as of this encounter Care Teams Waiter/Waitress Take Out Relationship Specialty Start Date End Date Meg Cross MD [address] [place] [address] PCP - General Internal Medicine 05/20/22 documented as of this encounter
--- OUTSIDE RECORDS SUMMARY | 2024-10-31 20:19 | XMS_ITS | Encounter Summary ---
Author Organization [employer] Address [address] [place] [address] 7 [place] [address] Care Team Providers Care Project Crew Worker Name Role Phone Meg Cross MD Primary Care Provider Reason for Visit * Reason Onset Date Comments Chest Pain 10/31/2024 Encounter Details Date Type Department Care Team (Late st Contact Info) Description 10/31/2024 Telephone [facility] MEDICAL [address] [place] [address] Meg Cross MD [address] [place] [address] Chest Pain Social History Tobacco Use Types Packs/Day Years [...] encounter Miscellaneous Notes * Telephone Encounter - Che Phillip LPN - 10/31/2024 4:41 PM EDT Spoke with patient who reports starting this morning she has had chest pain coming and going for a few minutes at a time. Report tingling in both arms. No SOB or sweating noted. Head ache to be noted. Patient reports pain in neck and back area. Advised ER for evaluation. Patient in agreement and will go to [facility]. Please monitor for ER report. * Telephone Encounter - Antonia Pastrana - 10/31/2024 4:11 PM EDT When I called patient today to remind her of her appointment 11/01/24 she said that she was at the [facility] on 10/27/24 and discharged on 10/28/24. Patient was having chest pain, put on heart monitor while in hospital. Patient states that twice today she was having chest pain again. Patient does have an appointment which I updated to Hospital Follow up tomorrow with Dr. Cross. Please advise, thank you documented in this encounter Plan of Treatment Upcoming Encounters Date Type Department Care Team (Late st Contact Info) Description 11/01/2024 10:30 AM EDT Office Visit [facility] MEDICAL [address] [place] [address] Meg Cross MD [address] [place] [address] documented as of this encounter Visit Diagnoses Not on filedocumented in this encounter Additional Health Concerns Assessment Noted Time PHQ-9 Depression Total Score: 4 08/26/19 24 10:35 AM EST documented as of this encounter Care Teams Project Crew Worker Relationship Specialty Start Date End Date Meg Cross MD [address] [place] [address] PCP - General Internal Medicine 05/20/22 documented as of this encounter
--- OUTSIDE RECORDS SUMMARY | 2024-10-31 20:19 | XMS_ITS | Clinical Summary ---
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 [...] She plans to call her pharmacy to picker packer the zanaflex refill to also try to [...] Encounters Date Type Department Care Team Description 10/31/[address] [address] Meg Cross MD Chest Pain 10/29/2024 Orders Only [facility] [address] [place] [address] Meg Cross MD 10/15/2024 9:40 AM EDT Telemedicine [address] [address] Meg Cross MD Anxiety (Primary Dx); Primary insomnia 09/27/2024 8:00 AM EDT Telemedicine [address] [address] Meg Cross MD 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); Anxiety 09/26/[address] [address] Meg Cross MD mental health concerns 09/20/[address] [address] Meg Cross MD fml paperwork 09/18/2024 9:30 AM EDT Office Visit [address] [address] Meg Cross MD Anxiety (Primary Dx); Injury of left wrist, initial encounter 09/18/2024 Telephone [facility] MEDICAL [address] [place] [address] [facility] [place], [facility] Stat result; FMLA paperwork 09/18/2024 Orders Only [address] [address] Meg Cross MD 09/18/[address] [address] Meg Cross MD request excuse letter for work 09/18/2024 Travel from Last 3 Months Immunizations Immunization Administration Dates Next Due Hep B, Unspecified [...] 11/01/2024 10:30 AM EDT Office Visit [facility] [address] [place] [address] Meg Cross MD [address] [place] [address] Health Maintenance Due Date Last Done Comments CT Colonography 1968 FIT DNA/Cologuard 1968 FIT 1968 FOBT 1968 Sigmoidoscopy 1968 Alcohol/Substance Use Screening 1980 Hepatitis C Screening 1986 Hepatitis B Vaccines (2 of 3 - 19+ 3-dose series) 04/14/2012 03/17/2012 Pneumococcal Vaccine: 50+ Years (1 of 1 - PCV) 2018 Zoster Vaccines (1 of 2) 2018 DTaP/Tdap/Td Vaccines (2 - Td or Tdap) 01/12/2024 01/11/2014, 05/17/2006 COVID-19 Vaccine ( - season) 2024 Influenza Vaccine (#1) 2024 [...] Comments XR CHEST 2 VIEWS Routine 10/28/2024 10:5 1 AM EDT XR WRIST 3+ VIEWS LEFT Routine 11:12 AM EDT XR WRIST 1-2 VIEWS LEFT Routine 09/18/2024 Injury of left wrist, initial encounter BI MAMMOGRAM SCREENING TOMOSYNTHESIS BILATERAL Routine 11/19/2022 10:08 AM EDT PAP, LB WITH CT/GC AND HPV Routine 10/15/2022 10:00 AM EDT HM COLONOSCOPY Routine 10/04/2018 HIV-1 ANTIBODY, EIA Routine 02/27/2016 from Last 3 Months or Most Recently Relevant to Health Maintenance Results * XR Chest 2 Views (10/28/2024 10:51 AM EDT) Anatomical Region Laterality Modality Chest Radiographic Trina ging us Meg Cross MD IMG XR PROCEDURES Final Result * XR Wrist 3+ Views Left (09/18/2024 [...] the distal radial metaphysis. An actionable message ([place]) has been communicated via the [employer] Actionable Findings system on 09/18/2024 5:42 PM, Message ID [id number]. WSN: [id number] Ordering Physician: Meg Cross Dictated By: ?Connor [...] of the distalradial metaphysis. An actionable message ([place]) has been communicated via the [employer] system on 09/18/2024 5:42 PM, Message ID [id number]. WSN: [id number] Ordering Physician: Meg Cross Dictated By: Connor [...] (Negative) Lay letter mailed to patient WSN: [id number] Ordering Physician: Meg Cross Dictated By: ?Umair Moreno MD Dictated Date/Time: ?11/19/22 12:58 pm Reviewed By: ?Umair Moreno MD Signed By: ? Umair Moreno MD Signed Date/Time: ? 11/19/22 12:58 pm Transcribed By: ? CSB District Fire Chief Date/Time: ? 11/19/22 12:56 pm Birads: Procedure Note Sherrie, Image - 11/19/2022 PROCEDURE: MM Digital Mammo [...] (Negative) Lay letter mailed to patient WSN: [id number] Ordering Physician: Meg Cross Dictated By: Umair Moreno MD Dictated Date/Time: 11/19/22 12:58 pm Reviewed By: Umair Moreno MD Signed By: Umair Moreno MD Signed Date/Time: 11/19/22 12:58 pm Transcribed By: SHANNON District Fire Chief Date/Time: 11/19/22 12:56 pm Birads: us Meg Cross MD IMG BI PROCEDURES Final Result * (ABNORMAL) PAP, LB with CT/GC and HPV (10/15/2022 10:00 AM EDT) PAP, LB WITH CT/GC AND HPV Patient Name: MELISSA WILEY(Annetta) [facility] Comment: Patient : ?1970 (Age: 52) Lab Accession #: ? [id number] Collection Date: ? 10/15/2022 Accession Date: ? 10/16/2022 Sign Out Date: ? 10/25/2022 Tissue Source: 1: THINPREP JOURNEYMAN MEAT CUTTER PAP TEST, CERVICAL/VAGINAL: Final Diagnosis: LOW GRADE SQUAMOUS INTRAEPITHELIAL LESION. Fungal organisms morphologically consistent with Kim spp. Shift in marianela suggestive of bacterial vaginosis. Satisfactory for evaluation. ??Endocervical/transformation zone ABSENT. Procedures/Addenda: Human Papilloma Virus, High-Risk (Any Dx) ? Status: Signed Out Interpretation: POSITIVE Methodology: [employer] Aptima HPV mRNA assay (Nucleic Acid Amplification Test, NAAT). Clinical History: Date of Last Menstrual Period: ?? not available Menstrual History: ?? not available Contraceptive History: ??not available Ancillary Testing: ??HPV (any dx) Case imaged by the Vaccibody Imaging System with manual rescreening or review. Clinical History (other): ??not available Primary Pathologist: Kelsey Arshad M.D. Phone #: ??[phone], On-Call Pathologist: ??[id number] Testing performed or reported by [facility], a Service of [facility], [address] [place] [address] Diogenes Yi MD, Special Needs Teacher [facility]# [id number] 10/15/2022 10:0 0 AM EDT 10/16/2022 7:34 AM EDT Meg Cross MD LAB CYTOLOGY ORDERABLES Final Re sult [facility] [address] [place] [address] * Hm Colonoscopy (10/04/2018) Colonoscopy 10 year recall Historical Provider HEALTH MAINTENANCE Final Result * HIV-1 antibody, EIA (02/27/2016) External HIV-1 Antibody Negative Blood Venous blood specimen / Unknown Historical Provider LAB BLOOD ORDERABLES Rafia l Result from Last 3 Months or Most Recently Relevant to Health Maintenance Insurance MEDICARE BCBS PPO Member Subscriber Plan / Payer (Ef fective 2022-Present) Name:Melissa Wiley Member ID:[id number] Relation to Subscriber:Self Name:Melissa Wiley Subscriber ID:[id number] Payer ID:Not on file Type:PPO Address: [facility] [address] [place] [address] GENERIC TPL Care Teams Ceramic Artist Relationship Specialty Start Date End Date Meg Cross MD [address] [place] [address] PCP - General Internal Medicine 05/20/22
--- OUTSIDE RECORDS SUMMARY | 2024-10-31 20:19 | XMS_ITS | Data Portability ---
Author Organization [place] - [facility], [facility] Address [address] [place] [address] Care Team Providers Care Business English Instructor Name Role Phone YANE MCLAUGHLIN Ekg Monitor Tech [phone] Assessment Encounter Date Assessment Date Assessment LastModified by Organization Details LastModified Time 09/20/2023 09/20/2023 Chief Complaint: Right knee contusion injury, work-related injury HPI: The patient is a 53-year-old female who presents with a chief complaint of knee pain that began this month. The onset of pain is associated with a work injury at [employer], where she reports hitting her knee [...] grossly intact. Eyes: Sclera are not blue. cashier tube room II-XII are grossly intact. Full extraocular motion. 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 This note was generated with [employer] [facility] speech recognition hr business partner consultant dictation software. Please excuse any errors that may have been overlooked during review of this note. Sometimes, these errors may affect the content or meaning of a given sentence. Please call for corrections. [email or web address] Not available 09/20/2023 17:01:01 10/13/2023 10/13/2023 Chief Complaint: Right knee contusion injury, work-related injury HPI: The patient is a 53-year-old female who presents with a chief complaint of knee pain that began this month. The onset of pain is associated with a work injury at [employer], where she reports hitting her knee with [...] grossly intact. Eyes: Sclera are not blue. cashier tube room II-XII are grossly intact. Full extraocular motion. 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 All questions and concerns were addressed. [email or web address] Not available 10/13/2023 12:39:18 11/24/2023 11/24/2023 Chief Complaint: Right knee contusion injury, work-related injury HPI: The patient is a 53-year-old female who presents with a chief complaint of knee pain that began this month. The onset of pain is associated with a work injury at [employer], where she reports hitting her knee with [...] grossly intact. Eyes: Sclera are not blue. cashier tube room II-XII are grossly intact. Full extraocular motion. 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 All questions and concerns were addressed. [email or web address] Not available 11/24/2023 10:44:02 Plan of Treatment [...] approval 2023 024 [email or web address] 4 [facility], [address] [facility], [facility] [address], [place], [address], 4 15:36:46 Medication Orders diclofenac 1 % topical gel 2023 024 [email or web address] 4 [id number], [address] [place] [address], [place], [address], 15:36:46 Patient TargetsNo targets recorded. Patient Instructions Encounter Date Encounter Id Patient Instructions Last Modified By Organization Details Last Modified Time 09/20/2023 [id number] Dear Melissa Wiley, Thank you for visiting [...] regards, Dr. Yrn Jacobsen MD Orthopedic Surgery [email or web address] Not available 09/20/2023 17:02:58 Reason for Referral Physical Therapist Referral for Contusion of right knee general strengthening, ROM, quad strengthening, modalities as tolerated Referring Physician: Yrn Jacobsen, Orthopedic Surgery, [id number] Encounter Date: 10/13/2023 Procedures Surgical History Date Name Laterality Status Provider Name and Address Organization Details Recorded Time 4 Small Joint Kenalog Injection, L/R completed Yrn Jacobsen MD [address] [facility] [address] [facility], [place], [address], [facility] 11/24/2023 10:44:47 4 Sports Knee 4&1 completed Yrn Jacobsen MD [address] [facility] [address], [place], [address], [facility] 09/20/2023 17:01:14 Imaging Results None recorded. Procedure Notes None recorded. Medical Equipment None Reported. Allergies Allergen ID Allergen Name Allergen Category Reaction Reaction Severity Criticality Documentation Date Start Date Code Code System Note Provider Name and Address Organization Details Recorded Time 869120 Product containin g penicilli n (product) medicatio n Not available Not available Not available 10/13/2023 49103 8001 SNOMED SANA AMBROSIO [facility] 12:06:33 Medications Name Sig Start Date Stop [...] Updated DateTime 10/13/2023 152.4 cm 28.1 kg/m2 47343.3 g SANA AMBROSIO [facility] 10/13/2023 12:06:18 Date Recorded Body height Body mass index (BMI) Body weight Provider Name and Address Organization Details Last Updated DateTime 11/24/2023 152.4 cm 28.1 kg/m2 33407.3 g Chris Raza [place] - [facility] 11/24/2023 09:45:19 Social History None recorded. Functional Status None recorded. Mental Status None recorded. Family History Nothing Reported. Medical History No medical history recorded. Gynecological HistoryNo gynecological history recorded. Obstetrics History GPAL:G 0 P 0 0 0 0 Past Encounters Encounter ID Performer Location Encounter Start Date Encounter Closed Date Diagnosis/Indication Diagnosis SNOMED-CT Code Diagnosis ICD10 Code Diagnosis Note [id number] MD Katelin Newberry [address] [place] [address] 09/20/2023 13:58:04 10/13/2023 15:08:49 Pain of right knee joint 6750181757 19874 M25.561 Contusion of right knee 3200200723 9263036 S80.01XA [id number] MD Katelin Newberry [address] [facility] [address] [place] [address] 10/13/2023 11:00:27 11/03/2023 09:05:01 Contusion of right knee 5053890606 7151506 S80.01XA [id number] [facility] 2[facility] [address] [place] [address] 11/24/2023 09:35:51 12/16/2023 14:26:23 Contusion of right knee 0515984116 0467809 S80.01XD Health Concerns Section Related Observation LastModified [...]
[2024-10-31 20:20] LABS: Alanine Aminotransferase 19 U/L (0-31); Albumin Level 4.4 g/dL (3.5-5.0); Alkaline Phosphatase 98 U/L (39-117); Anion Gap 13 (12-20); Aspartate Amino Transferase 20 U/L (5-31); Bilirubin Total 0.3 mg/dL (0.0-1.0); Blood Urea Nitrogen 15 mg/dL (9-16); Calcium 8.9 mg/dL (8.4-10.2); Carbon Dioxide 25 mmol/L (22-29); Chloride 109 mmol/L (96-108); Creatinine Clr Calc Pharmacy 53.1; Estimated Glomerular Filt Rate > 60; Glucose Random 119 mg/dL (60-115); Potassium 3.5 mmol/L (3.3-5.1); Sodium 143 mmol/L (135-145); Total Protein 6.9 g/dL (6.5-8.0)
--- OUTSIDE RECORDS SUMMARY | 2024-10-31 20:20 | XMS_ITS | Encounter Summary ---
Author Organization [employer] Address [address] [place] [address] 7 [place] [address] Care Team Providers Care Department Assistant Name Role Phone Meg Cross MD Primary Care Provider [phone] Encounter Details Date Type Department Care Team (Late st Contact Info) Description 11/28/2023 Orders Only [facility] [address] [place] [address] Meg Cross MD [address] [place] [address] Social History Tobacco Use Types Packs/Day Years [...] Description 11/01/2024 10:30 AM EDT Office Visit [place] [facility] [address] [place] [address] Meg Cross MD [address] [place] [address] documented as of this encounter Procedures Procedure [...] to moderate subscapularis tendinopathy without tear. WSN: [id number] Ordering Physician: Bonita Atkinson Dictated By: ?Connor Acevedo MD Dictated Date/Time: ?12/16/23 11:22 a Reviewed By: ?Connor Acevedo MD Signed By: ? Connor Acevedo MD Signed Date/Time: ? 12/16/23 11:22 am Transcribed By: ? CSB Transcribed Date/Time: ?12/16/23 11:12 am Procedure Note Donotuseinterpreter, Image - 12/16/2023 Clinical history: Right shoulder [...] to moderate subscapularis tendinopathy without tear. WSN: [id number] Ordering Physician: Bonita Atkinson Dictated By: Connor Acevedo MD Dictated Date/Time: 12/16/23 11:22 a Reviewed By: Connor Acevedo MD Signed By: Connor Acevedo MD Signed Date/Time: 12/16/23 11:22 am Transcribed By: SHANNON Transcribed Date/Time: 12/16/23 11:12 am Bonita Atkinson MD IMG MRI PROCEDURES Final Resul t * XR Knee 1-2 Views Right (12/08/2023 1:25 PM EDT) Anatomical Region Laterality Modality Lower Extremities, Knee Right Radiogra [facility] 12/08/2023 1:25 PM EDT Narrative 12/08/2023 [...] MRI examination of the right knee. WSN: [id number] Ordering Physician: Meg Cross Dictated By: ?Domenico Palacio MD, V Dictated Date/Time: ?12/08/23 1:39 pm Reviewed By: ?Domenico Palacio MD, V Signed By: ? Domenico Palacio MD, V Signed Date/Time: ? 12/08/23 1:39 pm [...] MRI examination of the right knee. WSN: [id number] Ordering Physician: Meg Cross Dictated By: Domenico Palacio MD, V Dictated Date/Time: 12/08/23 1:39 pm Reviewed By: Domenico Palacio MD, V Signed By: Domenico Palacio MD, V Signed Date/Time: 12/08/23 1:39 pm Transcribed By: CSB Transcribed Date/Time: 12/08/23 1:38 pm Meg Cross [...] Upper Extremities, Forearm Right Radio graphic Imaging Meg Cross MD IMG XR PROCEDURES Final Result * XR ELBOW 3 OR MORE VIEWS RIGHT (11/27/2023 12:37 PM EDT) Anatomical Region Laterality Modality Radiographic Trina ging Meg Cross MD IMG XR PROCEDURES Final Result * CT Abdomen Pelvis w/ Contrast (11/27/2023 12:37 PM EDT) Anatomical Region Laterality Modality Body, Pelvis, Abdomen Computed T omography us Meg Cross MD IMG CT PROCEDURES Final Result * CT Chest w/ Contrast (11/27/2023 12:36 PM EDT) Anatomical Region Laterality Modality Body, Chest Computed Tomogra phy Meg Cross MD IMG CT PROCEDURES Final Result * XR Chest Portable (11/27/2023 12:35 PM EDT) Anatomical Region Laterality Modality Radiographic Trina ging us Meg Cross MD IMG XR PROCEDURES Final Result * CT Cervical Spine w/o Contrast (11/27/2023 12:35 PM EDT) Anatomical Region Laterality Modality Spine, C-spine Computed Tomogra phy Meg Cross MD IMG CT PROCEDURES Final Result * CT HEAD WO CONTRAST (11/27/2023 12:34 PM EDT) Anatomical Region Laterality Modality Computed Tomogra phy Meg SCHWARZ CT PROCEDURES Final Result documented in this encounter Visit Diagnoses Not on filedocumented in this encounter Additional Health Concerns Assessment Noted Time PHQ-9 Depression Total Score: 4 08/26/19 24 10:35 AM EST documented as of this encounter Care Teams Department Assistant Relationship Specialty Start Date End Date Meg Cross MD [address] [place] [address] PCP - General Internal Medicine 05/20/22 documented as of this encounter
--- OUTSIDE RECORDS SUMMARY | 2024-10-31 20:20 | XMS_ITS | Clinical Summary ---
Author Organization [facility] Address [address] [place] [address] Care Team Providers Care Livestock Farmers Name Role Phone Unavailable Primary Care Provider [...]
[2024-10-31 20:28] LABS: Troponin-I High Sensitivity < 2.7 ng/L (<3.5-17.0)
[2024-10-31 22:17] VITALS: BP 107/66; PULSE 59; RESP 13; O2SAT 97
[2024-10-31 22:21] VITALS: BP 107/66; PULSE 59; RESP 13; TEMP 36.9; O2SAT 97
== END 2024-10-31 22:30 | disposition home or self-care (01) ==
PROVIDERS: Registered Nurse Emergency; Emergency Provider Emergency Medicine; PCP Internal Medicine
DX: R07.89 Other chest pain (principal); F43.9 Reaction to severe stress, unspecified; Z79.899 Other long term (current) drug therapy
CPT/HCPCS: 36415; 71046; 80053; 84484; 85025; 93005; 99283; 99284

== ENCOUNTER → 2024-10-31 19:32 | Outpatient (BNV) | payer BC, MEDICARE, SELFPAY | PROVIDERS: Emergency Provider Emergency Medicine; PCP Internal Medicine; Visit Provider Internal Medicine Cardiovascular Disease | DX: R07.9 Chest pain, unspecified (principal) | CPT/HCPCS: 93010 ==

== ENCOUNTER → 2024-10-31 19:49 | Outpatient (BNV) | payer BC, MEDICARE, SELFPAY | PROVIDERS: Emergency Provider Emergency Medicine; PCP Internal Medicine; Visit Provider Radiology Diagnostic Radiology | DX: R07.9 Chest pain, unspecified (principal) | CPT/HCPCS: 71046 ==